=== PATIENT | male | born 1990 | race Caucasian/White ===

== ENCOUNTER 2017-09-28 11:13 | Emergency (ER) | payer SELFPAY ==
--- NOTE | 2017-09-28 11:38 | EDM.PDOC ---
ED HPI GENERAL MEDICAL PROBLEM - General Chief Complaint: Abdominal Pain Stated Complaint: RIGHT FLANK/ABDOMINAL PAIN Time Seen by Provider: 09/28/17 11:38 Source of Information: Reports: Patient History Limitations: Reports: No Limitations - History of Present Illness INITIAL COMMENTS - FREE TEXT/NARRATIVE: 27-year-old male presents to the ED with complaints of abdominal pain. States that 3 days ago was primarily in his left lower quadrant but this is subsequently gone away. For the last 2 days he's had persistent right upper quadrant abdominal pain that is worse with deep inspiration or coughing. Denies any extra sputum production. No fever or chills. Pain is not initially worsened by eating. He can localize the pain very well to just up underneath the right costal margin starting at the anterior axillary line along the costal margin to the mid right costal margin. He's had no previous similar type pain. States his bowel function tends to be normal. He diarrhea. No nausea or vomiting. Regular alcohol use but nothing to excess. Pain does seem to radiate through to his back /infrascapular at times. He has had no previous abdominal surgery. Second problem is chronic attention deficit disorder for which she was on Strattera on most of high school and then used Adderall intermittently since high school. Lately he's noticed that he is not able to focus well at work and in getting in trouble with his attitude with coworkers. He would like to know peaked get a prescription for Adderall for sure. Time until he can find a follow-up physician to see Onset: Gradual Onset Date: 09/26/17 Duration: Day(s): Location: Reports: Abdomen Quality: Reports: Ache (Right upper quadrant abdominal pain radiating through to her right back infrascapular area worsened by deep breathing or coughing.), Other Severity: Moderate (This is described as a deep aching discomfort with a colicky component) Improves with: Reports: None Worsens with: Reports: None Context: Denies: Activity, Exercise, Lifting, Sick Contact, Trauma, Other Associated Symptoms: Reports: Shortness of Breath. 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) (None.) Right Lower Abdomen Pain Score (Numeric/FACES): 5 - Related Data Allergies Allergy/AdvReac Type Severity Reaction Status Date / Time aspirin Allergy Swollen Verified 09/28/17 11:31 Tongue Home Meds: Home Meds Dextroamphetamine/Amphetamine [Adderall 20 mg Tablet] 20 mg PO DAILY #30 tablet 09/28/17 [Rx] Past Medical History - Past Surgical History Musculoskeletal Surgical History: Reports: Arthroscopic Knee Social & Family History - Tobacco Use Smoking Status *Q: Current Every Day Smoker Years of Tobacco use: 10 Packs/Tins Daily: 0.5 - Caffeine Use Caffeine Use: Reports: Energy Drinks, Soda - Recreational Drug Use Recreational Drug Use: No - Living Situation & Occupation Occupation: Employed ED ROS GENERAL - Review of Systems Review Of Systems: See Below Constitutional: Denies: Fever, Malaise, Weakness, Fatigue, Decreased Appetite, Weight Loss HEENT: Reports: No Symptoms Respiratory: Reports: Shortness of Breath Cardiovascular: Reports: No Symptoms (Cannot take a full deep breath as it aggravates his right upper quadrant abdominal pain) Endocrine: Reports: No Symptoms GI/Abdominal: Reports: Abdominal Pain (See history of present illness.) : Reports: No Symptoms Musculoskeletal: Reports: No Symptoms Skin: Reports: No Symptoms Neurological: Reports: No Symptoms Psychiatric: Reports: No Symptoms Hematologic/Lymphatic: Reports: No Symptoms Immunologic: Reports: No Symptoms ED EXAM, GI/ABD - Physical Exam Exam: See Below Exam Limited By: No Limitations General Appearance: Alert, WD/WN, No Apparent Distress Eyes: Bilateral: Normal Appearance (No jaundice.) Head: Atraumatic, Normocephalic Neck: Normal Inspection, Supple, Non-Tender, Full Range of Motion. No: Carotid Bruit, Lymphadenopathy (L), Lymphadenopathy (R) Respiratory/Chest: No Respiratory Distress, Lungs Clear, Normal Breath Sounds, No Accessory Muscle Use Cardiovascular: Normal Peripheral Pulses, Regular Rate, Rhythm, No Edema, No Gallop, No Murmur, No Rub GI/Abdominal Exam: Tender (Tenderness is well localized to the right upper quadrant underneath the right costal margin with a positive Romero sign.), Abnormal Bowel Sounds (Bowel sounds are slightly hyperactive in all 4 quadrants. ), Other. No: Soft, Non-Tender, No Organomegaly, No Abnormal Bruit, No Mass, Pelvis Stable, Guarding, Rigid, Rebound (Male) Exam: No Hernia Back Exam: Normal Inspection (No surgical scars.), Full Range of Motion, CVA Tenderness (R) (Assessment of the right CVA does aggravate his right upper quadrant abdominal pain) Extremities: Normal Inspection, Normal Range of Motion, Non-Tender, No Pedal Edema Neurological: Alert, Oriented, CN II-XII Intact, Normal Cognition, Normal Gait Psychiatric: Normal Affect, Normal Mood Skin Exam: Warm, Dry, Intact, Normal Color, No Rash Course - Vital Signs Last Recorded V/S: Last Vital Signs Temp 36.9 C 09/28/17 11:26 Pulse 74 09/28/17 11:26 Resp 12 09/28/17 11:26 BP 148/90 H 09/28/17 11:26 Pulse Ox 100 09/28/17 11:26 - Orders/Labs/Meds Orders: Active Orders 24 hr Category Date Time Status Abdomen 1V Flat [CR] Stat Exams 09/28/17 11:45 Taken UA W/MICROSCOPIC [URIN] Stat Lab 09/28/17 12:37 Ordered Labs: Laboratory Tests 09/28/17 09/28/17 09/28/17 Range/Units 12:00 12:00 12:37 WBC 6.10 (4.23-9.07) K/mm3 RBC 4.83 (4.63-6.08) M/mm3 Hgb 14.7 (13.7-17.5) gm/L Hct 43.3 (40.1-51.0) % MCV 89.6 (79.0-92.2) fl MCH 30.4 (25.7-32.2) pg MCHC 33.9 (32.2-35.5) g/dl RDW Std Deviation 40.2 (35.1-43.9) fL Plt Count 300 (163-337) K/mm3 MPV 9.5 (9.4-12.3) fl Neutrophils % (Manual) 55 (40-60) % Band Neutrophils % 0 (0-10) % Lymphocytes % (Manual) 37 (20-40) % Atypical Lymphs % 0 % Monocytes % (Manual) 6 (2-10) % Eosinophils % (Manual) 2 (0.8-7.0) % Basophils % (Manual) 0 L (0.2-1.2) Platelet Estimate Adequate RBC Morph Comment Normal Sodium 142 (136-145) mEq/L Potassium 4.1 (3.5-5.1) mEq/L Chloride 106 (98-107) mEq/L Carbon Dioxide 25 (21-32) mEq/L Anion Gap 15.1 H (5-15) BUN 12 (7-18) mg/dL Creatinine 0.8 (0.7-1.3) mg/dL Est Cr Clr Drug Dosing 144.48 mL/min Estimated GFR (MDRD) > 60 (>60) mL/min BUN/Creatinine Ratio 15.0 (14-18) Glucose 110 H (74-106) mg/dL Calcium 9.4 (8.5-10.1) mg/dL Total Bilirubin 0.2 (0.2-1.0) mg/dL AST 20 (15-37) U/L ALT 46 (16-63) U/L Alkaline Phosphatase 66 (46-116) U/L C-Reactive Protein 0.6 (<1.0) mg/dL Total Protein 7.0 (6.4-8.2) g/dl Albumin 3.9 (3.4-5.0) g/dl Globulin 3.1 gm/dL Albumin/Globulin Ratio 1.3 (1-2) Amylase 52 (25-115) U/L Urine Color Yellow (Yellow) Urine Appearance Clear (Clear) Urine pH 6.5 (5.0-8.0) Ur Specific Crum 1.015 (1.005-1.030) Urine Protein Negative (Negative) Urine Glucose (UA) Negative (Negative) Urine Ketones Negative (Negative) Urine Occult Blood Negative (Negative) Urine Nitrite Negative (Negative) Urine Bilirubin Negative (Negative) Urine Urobilinogen 0.2 (0.2-1.0) Ur Leukocyte Esterase Negative (Negative) Urine RBC 0-5 (0-5) /hpf Urine WBC 0-5 (0-5) /hpf Ur Epithelial Cells 0-5 (0-5) /hpf Urine Bacteria Few (FEW) /hpf Urine Mucus Few (FEW) /hpf Meds: Medications Discontinued Medications Generic Name Dose Route Start Last Admin Trade Name Freq PRN Reason Stop Dose Admin Magnesium Citrate 180 ml 09/28/17 13:10 09/28/17 13:24 Citrate Of Magnesia PO 09/28/17 13:11 180 ml ONETIME ONE Administration - Radiology Interpretation Free Text/Narrative:: 27-year-old male presents the ED with 2 day history of right upper quadrant abdominal pain is aggravated by deep breathing or coughing. He is able to localize the pain very well to just up underneath the right costal margin and is seems to radiate through to his intrascapular area on the right side. No associated fever chills nausea vomiting and he can eat without aggravating the pain. Bowel function is otherwise normal. Clinically he is very tender right upper quadrant in the distribution of the gallbladder. Current pain is 2 out of 10 at rest. Plan routine labs will be performed. KUB to be done and GB ultrasound will be done as well. - Re-Assessments/Exams Free Text/Narrative Re-Assessment/Exam: 09/28/17 12:40 KUB reveals marked increased stool in in the transverse colon particularly the hepatic flexure with the patient is a splinting most of his pain. Pattern is otherwise within normal limits showing no signs of obstruction. Lab tests are back. They reveal a normal WBC at 6.10 with 55% neutrophils and no bands. Hemoglobin is normal at 14.7 with hematocrit of 43.3. Platelet count is 300,000. Chemistry is normal with a slightly elevated anion gap at 15.1. Glucose is 110. Amylase is 52. Bilirubin is 0.2 with AST of 20. A LTS 46. Alk phosphatase is 66 CRP is 0.6.. Plan patient will benefit from bowel cleanse. Will suggest 6 ounces of Citroma mixed with 4 ounces of juice to be taken once that she get his bowels moving in 1-2 hours. This should provide complete relief of your upper abdominal pain. 09/28/17 13:15 I had canceled his gallbladder ultrasound, however it was performed at any rate. Interestingly it does show one large gallstone 1.13 cm which is highly mobile and unlikely to be the cause of his current pain. Patient was so advised that if he continues to have similar type pain after eating fatty foods that he may have to follow-up with a surgeon. Departure - Departure Time of Disposition: 13:05 Disposition: Home, Self-Care 01 Condition: Fair Clinical Impression: Constipation by delayed colonic transit, Attention deficit disorder (ADD) in adult Abdominal pain Qualifiers: Abdominal location: right upper quadrant Qualified Code(s): R10.11 - Right upper quadrant pain Cholelithiasis Qualifiers: Cholelithiasis location: gallbladder Cholecystitis presence: without cholecystitis Biliary obstruction: without biliary obstruction Qualified Code(s) : K80.20 - Calculus of gallbladder without cholecystitis without obstruction - Discharge Information Prescriptions: Dextroamphetamine/Amphetamine [Adderall 20 mg Tablet] 20 mg PO DAILY #30 tablet Instructions: Constipation, Adult, [id number], Abdominal Pain, Adult, Easy-to -Read Referrals: PCP,None [Primary Care Provider] - Forms: ED Department Discharge, ED Return to Work/School Form Additional Instructions: Evaluation in the emergency room today in regards to persistent right upper quadrant abdominal pain for the last 2 days. Examination initially suggested possible gallbladder disease. However bowel sounds are active and you can still can eat normally which would be unusual with gallbladder disease. Lab work was all completely within normal limits showing no evidence of inflammation of the liver or common bile duct or pancreas. X-ray of the abdomen shows increased stool throughout the transverse colon particularly the right upper quadrant of the abdomen were your pain is. Therefore you require bowel cleanse and I would suggest use of Citroma 6 ounces mixed with 5 ounces to 6 ounces of juice of choice taken by mouth once. This usually starts to work in 1- 2 hours and will usually make the bowels move 3-4 times sometimes ending and diarrhea. This should relieve your abdominal pain completely. You may continue to eat and drink per normal. Of note I canceled your gallbladder ultrasound however got done at any rate. Interestingly it does confirm that you have one large gallstone within your gallbladder. Therefore I would adopt a wait and see approach if you continue to have recurrent right upper quadrant abdominal pain particular precipitated by eating something fatty and you may require consultation with the surgeon to have your gallbladder removed. As far as attention deficit disorder goes I did write a prescription for Adderall 20 mg strength one suggest one tablet once daily every morning to help bring attention deficit disorder symptoms under control. Usually this medication is not administered through the emergency room. You are therefore required follow- up with a primary care physician such as Dr. Gardner--or one of the nurse practitioners on the second floor of the [facility], [place], operated by [facility]. The phone number to make an appointment is [phone]. - My Orders Last 24 Hours: My Active Orders 09/28/17 11:45 Abdomen 1V Flat [CR] Stat 09/28/17 12:37 UA W/MICROSCOPIC [URIN] Stat - Assessment/Plan Last 24 Hours: My Active Orders 09/28/17 11:45 Abdomen 1V Flat [CR] Stat 09/28/17 12:37 UA W/MICROSCOPIC [URIN] Stat
[2017-09-28] MEDS ORDERED: Magnesium Citrate Solution 296 ML Bottle PO ONE (13:10)
--- NOTE | 2017-09-28 13:44 | US ---
Limited abdominal ultrasound: Multiple real-time images of the right upper abdomen were obtained. Comparison: No previous abdominal ultrasound. Technologist's note: Difficult to evaluate entire liver and CBD due to bowel gas and stool Findings: Visualized portions of the liver showed no discrete abnormality. Single gallstone is seen within gallbladder measuring about 1 cm. No gallbladder wall thickening is seen. No discrete biliary duct dilatation is seen. Right kidney shows no hydronephrosis or mass. Right kidney measures 12.2 cm in length. Pancreas is poorly seen due to bowel gas. Portal vein shows normal hepatopedal flow. Inferior vena cava is patent. Impression: 1. Single gallstone within the gallbladder. No gallbladder wall thickening is seen. No biliary duct dilatation is felt to be present. 2. Poorly seen pancreas as well as portions of the liver not optimally seen. 3. Other portions of the right upper quadrant abdominal ultrasound appear within normal limits. Diagnostic code #3
--- NOTE | 2017-09-28 18:18 | CR ---
Abdomen: Supine view of the abdomen was obtained. Bowel gas pattern appears within normal limits. No abnormal calcifications or soft tissue abnormality is seen. Bony structures appear within normal limits. Impression: 1. Nothing acute is seen on supine abdominal x-ray. Diagnostic code #1
== END 2017-09-28 13:28 | disposition home or self-care (01) ==
LOC: JD.ED 11:13
DX: K80.20 Calculus of gallbladder without cholecystitis without obstruction (principal); K59.01 Slow transit constipation; F98.8 Other specified behavioral and emotional disorders with onset usually occurring in childhood and adolescence; F17.210 Nicotine dependence, cigarettes, uncomplicated; Z88.6 Allergy status to analgesic agent
CPT/HCPCS: 36415; 74018; 76705; 80053; 81001; 82150; 85025; 86140; 99284; A9270